=== PATIENT | male | born 1960 | race Caucasian/White ===

== ENCOUNTER 2023-07-14 19:24 | Observation (INO) | payer BC, SELFPAY ==
[2023-07-14 19:28] VITALS: BP 143/89; PULSE 91; RESP 18; TEMP 36.8; O2SAT 98
[2023-07-14 20:08] LABS: Absolute Lymphocyte Count 0.62 X10^3/uL (0.83-4.51); Absolute Neutrophil Count 3.6 X10^3/uL (2.0-7.7); Basophil# 0.03 X10^3/uL; Basophil% 0.6 % (0-1); Eosinophil# 0.01 X10^3/uL; Eosinophils% 0.2 % (0-5); Hematocrit 38.1 % (40-54); Lymphocyte # 0.62 X10^3/ul (0.83-4.51); Mean Corp Hgb Conc 34.1 g/dL (32-36); Mean Corpuscular Hgb 33.1 pg (27.0-32.0); Mean Corpuscular Volume 96.9 fL (80-94); Mean Platelet Vol. 8.7 fl (6.2-12.0); Monocyte# 0.52 X10^3/uL; Monocyte% 10.9 % (0-10); NRBC Flagged by Analyzer 0 % (0-5); Neutrophil # 3.57 X10^3/uL (2.7-7.7); Neutrophil % 74.9 % (47-70); Platelet Count 157 K/mm3 (150-450); RBC Distribution Width CV 13.2 % (11.6-14.6); RBC Distribution Width SD 47.8 fl (35.1-43.9); Red Blood Count 3.93 M/mm3 (4.6-6.2); White Blood Count 4.8 K/mm3 (4.4-11.0)
[2023-07-14 20:18] LABS: Alcohol, Blood (Medical)-Serum < 3.0 mg/dL
[2023-07-14 20:24] LABS: ALB/GLOB Ratio 0.9 RATIO (0.9-2.4); AST(SGOT) 120 U/L (15-37); Alanine Aminotransfer ALT/SGPT 50 U/L (16-61); Albumin, Serum 3.3 g/dL (3.2-5.0); Alkaline Phosphatase 132 U/L (45-117); Anion Gap 7 (5-15); BUN 3 mg/dL (7-18); BUN/Creat Ratio 4.7 RATIO (10-20); Calcium,Total 8.2 mg/dL (8.5-10.1); Chloride 97 mmol/L (98-107); Creatinine, Serum 0.64 mg/dL (0.70-1.30); EST Glomerular Filtration Rate 135 mL/min (>60); Est Glom Filt Rate - Afr Amer 163 mL/min (>60); Globulin 3.7 g/dL (2.2-4.2); Glucose 110 mg/dL (74-106); Sodium Level 134 mmol/L (136-145)
[2023-07-14 21:21] VITALS: BP 143/88; PULSE 89; RESP 18; O2SAT 98
--- NOTE | 2023-07-14 21:28 | PCM.HP.STD ---
HPI - General General Date of Admission: 07/14/23 Date of Service: 07/14/23 Chief Complaint: Acute alcohol withdrawal HPI Narrative DARIAN MOORE, is a 63 M who presented to the emergency department at [facility] on 07/14/2023 for acute alcohol withdrawal. Patient reports his last drink was 2 to 3 days ago. He states he typically drinks 5 to 12 12 ounce beers daily. He has been doing this for at least 37 years and has never gone through detox program. His daughter was visiting earlier today at which time he had a seizure. He has never had a withdrawal seizure previously. He has no history of seizure disorder. His daughter indicated that he got very tremulous especially in his leg and then went unresponsive and had loss of bladder. He was taken to [facility] emergency department for his seizure and his daughter reported he was postictal in the emergency squad but became more clear once he was in the emergency department there. He was instructed to come here for further detox. Patient does not follow with a primary care physician and he last saw a doctor approximately 3 years ago. He takes no chronic medications and denies any other issues. Vital signs on presentation demonstrated temperature of 98.3, heart rate 91, blood pressure 143/89, respiratory rate was 18 oxygen saturations are 98% on room air. His CBC is overall unimpressive. His chemistry panel did reveal mild hypo and treatment with a sodium of 134, hypochloremia with a chloride of 97, potassium was low at 3.0 and glucose was 110. His liver were slightly abnormal with an elevated AST at 120 and normal ALT. Alcohol level was unremarkable. He was given a dose of oral phenobarb in the emergency department and request for admission was made. [facility] Medical History Alcohol abuse Allergy/AdvReac Type Severity Reaction Status Date / Time Penicillins Allergy PT UNSURE Verified 07/14/23 19:28 OF REACTION Family History (Updated 07/14/23 @ 22:[address] Janki Mac DO) Other Alcohol abuse COPD (chronic obstructive pulmonary disease) Cancer Surgical History no surgical history no surgical history Social History (Updated 07/14/23 @ 22:[address] Janki Mac DO) housing: house current occupational status: retired leisure activities: other other: Gardening Smoking Status: Never smoker alcohol intake: current alcohol intake frequency: 3 or more drinks per day details: 5 to 12 12 ounce beers daily substance use type: does not use ROS Constitutional Constitutional: Denies anorexia, change in weight, chills, fatigue, fever(s), malaise, night sweats, weakness or other Eyes Eyes: Denies blurry vision, change in eye color, change in vision, discharge from eye(s), double vision, erythema, eye pain, loss of vision or other ENT HEENT: Denies abnormal hearing, dysphagia, ear pain, epistaxis, headache(s), hearing loss, nasal congestion, nasal discharge, post nasal drip, sinus pressure, sore throat or other Cardiovascular Cardiovascular: Denies chest pain, claudication, dyspnea on exertion, edema, lightheadedness, orthopnea, palpitations, paroxysmal nocturnal dyspnea, rapid heart rate, syncope or other Respiratory/Chest Respiratory/Chest: Denies cough, dyspnea, excessive phlegm production, hemoptysis, productive cough, shortness of breath at rest, shortness of breath with exertion, wheezing or other Gastrointestinal Gastrointestinal: Reports vomiting; Denies abdominal pain, coffee ground emesis, constipation, diarrhea, dyspepsia, hematemesis, hematochezia, loose stools, melena, nausea or other Genitourinary Genitourinary: Denies burning urination, difficulty urinating, dysuria, hematuria, nocturia, urinary frequency, urinary hesitancy, urinary incontinence, urinary urgency or other Musculoskeletal Musculoskeletal: Denies arthralgias, back pain, joint pain, joint stiffness, joint swelling, myalgias, neck pain or other Neurologic Neurologic: Reports seizure-like activity; Denies abnormal gait, abnormal speech, confusion, disequilibrium, dizziness, focal weakness, headache(s), numbness, paresthesias, seizures, syncope, tingling, tremor(s) or other Psychiatric Psychiatric: Denies anxiety, depression, homicidal ideation, suicidal ideation or other Endocrine Endocrinology: Denies change in body appearance, cold intolerance, excessive sweating, heat intolerance, polydipsia, polyuria or other Hematologic/Lymphatic Hematologic/Lymphatic: Denies anemia, easy bleeding, easy bruising, lymphadenopathy or other Allergic/Immunologic Allergic/Immunologic: Denies rhinitis, hives, eczemia, asthma or other Vital Signs Vital Signs Vital Signs: 07/14/23 19:28 07/14/23 21:21 Temperature 98.3 F Temperature Source Temporal Pulse Rate 91 89 Respiratory Rate 18 18 Blood Pressure 143/89 H 143/88 H Blood Pressure Mean 107 106 Pulse Ox 98 98 Oxygen Delivery Method Room Air Room Air Physical Exam Const alert, oriented x3, no apparent distress and average body habitus Constitutional Narrative: Upper middle-aged, white male, sitting up in bed, appears comfortable and nontoxic, family at bedside General Appearance: cooperative HEENT normocephalic and head/scalp atraumatic HEENT Narrative: Dentition is good for age, Mallampati is 3, no thrush, minimal hearing loss Eyes PERRL, EOMs intact bilaterally and conjunctivae normal Eyes Narrative: No scleral icterus Neck no lymphadenopathy and supple Neck Narrative: Trachea midline, no thyroid enlargement Resp normal respiratory effort, no retractions, no use of accessory muscles and clear to auscultation bilaterally Auscultation: Negative for rales, rhonchi or wheezes Cardio regular rhythm, S1 normal heart sound, S2 normal heart sound, no murmurs, no rub, no gallops and no clicks Cardio Narrative: Mildly tachycardic GI normal to inspection, nondistended, normoactive bowel sounds, soft to palpation and non-tender Extremity no clubbing, cyanosis or edema Extremity Narrative: Pedal pulses are 2+ Skin skin turgor normal, no jaundice, no petechiae and no mottling Skin Narrative: Scattered ecchymosis with no significant wounds Neuro oriented x3, CN's II-XII intact bilaterally, moves all extremities and no focal motor deficits Speech: speech normal Psych affect normal Psych Narrative: Pleasant, interacts normally Results Lab / Micro Data Attestation: I reviewed the patient's lab results. 07/14/23 20:00 07/14/23 20:00 Labs: Laboratory Results - last 24 hr 07/14/23 20:00: WBC 4.8, RBC 3.93 L, Hgb 13.0, Hct 38.1 L, MCV 96.9 H, MCH 33.1 H, MCHC 34.1, RDW Std Deviation 47.8 H, RDW Coeff of Alissa 13.2, Plt Count 157, MPV 8.7, Immature Gran % (Auto) 0.400, Neut % (Auto) 74.9 H, Lymph % (Auto) 13.0 L, [place] % (Auto) 10.9 H, Eos % (Auto) 0.2, Baso % (Auto) 0.6, Absolute Neuts (auto) 3.6, Absolute Lymphs (auto) 0.62 L, Nucleated RBC % 0, Sodium 134 L, Potassium 3.0 L, Chloride 97 L, Carbon Dioxide 30.0, Anion Gap 7, BUN 3 L, Creatinine 0.64 L, Est GFR (MDRD) Af Amer 163, Est GFR (MDRD) Non-Af 135, BUN/Creatinine Ratio 4.7 L, Glucose 110 H, Calcium 8.2 L, Total Bilirubin 0.90, AST 120 H, ALT 50, Alkaline Phosphatase 132 H, Total Protein 7.0, Albumin 3.3, Globulin 3.7, Albumin/Globulin Ratio 0.9, Ethyl Alcohol < 3.0 Assessment & Plan Assessment/Plan (1) Alcohol withdrawal: (2) Alcoholic hepatitis: (3) Hypokalemia: (4) Hyponatremia: (5) Hypochloremia: (6) Elevated blood pressure reading: (7) Alcohol withdrawal seizure: PLAN: Plan Acute alcohol withdrawal -Patient has been 2 to 3 days without alcohol -Seizure earlier today witnessed by daughter with loss of bladder control and postictal state following -First time this is ever happened -Patient has never been through alcohol detox program previously -Drinks anywhere from 5-12 beers daily -Has been drinking at least 37 years -Start phenobarbital taper -CIWA with as needed Ativan -Supportive medications -Thiamine and folate -180 consultation Withdrawal seizure -Phenobarb as above -Seizure precautions -No further work-up at this time as this seems to be a withdrawal seizure Hypokalemia -60 mill equivalents p.o. potassium replacement -Check a.m. magnesium and phosphorus level Alcoholic hepatitis -AST with mild elevation 120 -ALT is normal -Should resolve with alcohol cessation -No further work-up required at this time -Patient does not qualify for steroids with overall low Madrey score Elevated blood pressure reading -Patient without history of hypertension but does not follow with a doctor -As needed hydralazine next-continue to monitor -May be elevated due to alcohol withdrawal Hyponatremia/hypochloremia -Likely related to decreased oral intake and chronic alcohol use -Very mild -Repeat BMP in a.m. DVT prophylaxis -Low risk -Early and frequent ambulation CODE STATUS Full code Charges/Coding Visit Charges Inpatient E&M: 73219 Init Hosp L2
[2023-07-14] MEDS: Phenobarbital 32.4 MG Tablet 97.2 MG PO (21:58)
[2023-07-14 22:08] VITALS: BP 143/88; PULSE 89; RESP 18; TEMP 36.6; O2SAT 95
--- NOTE | 2023-07-14 22:10 | EX.ED.DYSGE1 ---
HPI History of Present Illness Chief Complaint: ETOH Intox PFSH PFSH Medical History Alcohol abuse Allergy/AdvReac Type Severity Reaction Status Date / Time Penicillins Allergy PT UNSURE Verified 07/14/23 19:28 OF REACTION Family History (Updated 07/14/23 @ 22:[address] Janki Mac DO) Other Alcohol abuse COPD (chronic obstructive pulmonary disease) Cancer Social History (Updated 07/14/23 @ 22:[address] 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 States they are at an outside hospital prior to arrival when he underwent lab work-up for seizures and alcohol withdrawal. They note they received Ativan, banana bag. There is sent in for admission to [facility] detox program. Patient states he drinks approximately 4-6 beers daily. Last drink was 2 to 3 days ago. Denies history of alcohol withdrawal alcohol drawl seizures REVIEW OF SYSTEMS: Pertinent positives: Seizures, Pertinent negatives: Hallucinations PHYSICAL EXAM: Nursing triage notes reviewed, Vital signs reviewed Constitutional: please see mdm HENT: MMM Eyes: Pupils equal round and reactive to light, Extraocular muscles intact Neck: No stridor, no JVD, full neck ROM Lungs: Clear to auscultation, No wheezing or rales. No increased work of breathing, no conversational dyspnea, no accessory muscle use, no nasal flaring. No respiratory distress noted Heart: Regular rate and rhythm, No murmurs, No rubs and No gallops, 2+ distal pulses (radial, femoral, posterior tibial) in all extremities Abdomen: Soft, there is no tenderness, rigidity, rebound or guarding, no obvious peritoneal signs, no palpable pulsatile abdominal masses, no auscultated abdominal bruit : No CVAT Extremities: No edema Neuro: No focal neurological deficits, cranial nerves II through XII intact, 5/5 strength in all extremities. Intact sensation to light touch in all extremities, 2+ reflexes bilateral patella tendons. Normal gait. No ataxia. Skin: No rash or lesions noted MEDICAL DECISION MAKING: Chief Complaint: Alcohol withdrawal External records reviewed: Per prior ED evaluation patient a Noncon CT scan of the head that was negative, chest x-ray showed no evidence of intrathoracic process. CBC from outside hospital showed no evidence of leukocytosis, there is mild anemia, there is thrombocytopenia as well urinalysis showed no evidence of UTI, CMP with mild hyponatremia, hypokalemia, no BULMARO, there was elevations in the patient's liver enzymes, these were mild, patient acetone level is negative, his Tylenol salicylate level were negative, tox cream was positive for THC, the patient received thiamine, folate, IV fluids, and 4 mg of IV Ativan outside hospital. Factors affecting care: Alcohol abuse Social determinants of health: Alcohol abuse History obtained from others: Patient's family Consults: Internal medicine ALL IMAGES (IF OBTAINED) HAVE BEEN PERSONALLY REVIEWED AND INTERPRETED BY MYSELF. MDM Narrative: The patient was hemodynamically stable, afebrile, nontoxic-appearing. Did not appear tremulous he did not appear anxious he is not hallucinating. Likely secondary him receiving Ativan. I obtain medical clearance for admission to detox. Patient's labs here were unremarkable. He was given phenobarbital to continue his withdrawal treatment he was admitted under medicine in stable condition. The patient and/or family, caregivers express understanding. The patient and/or family, caregivers agrees with the plan. Shared decision making: I will have a discussion with the patient and or visitors regarding risk/benefits of further testing or admission. They will be made aware of of the risk/benefits inherent in this decision they will be given the opportunity to voice understanding. Total critical care time today provided was at least 0 minutes. This excludes separately billable procedures. Critical care time (if documented) is secondary to the patient having high probability of clinically significant/life threatening deterioration in the patient's condition which required my urgent intervention. Lab Data Attestation: I reviewed the patient's lab results. Labs: Laboratory Results - last 24 hr 07/14/23 20:00 WBC 4.8 RBC 3.93 L Hgb 13.0 Hct 38.1 L MCV 96.9 H MCH 33.1 H MCHC 34.1 RDW Std Deviation 47.8 H RDW Coeff of Alissa 13.2 Plt Count 157 MPV 8.7 Immature Gran % (Auto) 0.400 Neut % (Auto) 74.9 H Lymph % (Auto) 13.0 L [place] % (Auto) 10.9 H Eos % (Auto) 0.2 Baso % (Auto) 0.6 Absolute Neuts (auto) 3.6 Absolute Lymphs (auto) 0.62 L Nucleated RBC % 0 Sodium 134 L Potassium 3.0 L Chloride 97 L Carbon Dioxide 30.0 Anion Gap 7 BUN 3 L Creatinine 0.64 L Est GFR (MDRD) Af Amer 163 Est GFR (MDRD) Non-Af 135 BUN/Creatinine Ratio 4.7 L Glucose 110 H Calcium 8.2 L Total Bilirubin 0.90 AST 120 H ALT 50 Alkaline Phosphatase 132 H Total Protein 7.0 Albumin 3.3 Globulin 3.7 Albumin/Globulin Ratio 0.9 Ethyl Alcohol < 3.0 BMPCBC with no leukocytosis, no anemia, no thrombocytopenia Mild hyponatremia, hypokalemia, no BULMARO LFTs with elevations in liver enzymes and alcohol-induced pattern, Serum alcohol negative Discharge Plan Triage Chief Complaint: ETOH Intox ED Provider: Willian Collins Dx/Rx/DC Orders Primary Care Provider: Care Physician,No Primary Disposition Disposition: Acute Care [facility] Discharge Date/Time: 07/14/23 22:09
[2023-07-14 22:18] VITALS: BP 147/80; PULSE 67; RESP 16; TEMP 36.7; O2SAT 99; BMI 20.8
[2023-07-14 22:46] LABS: Amphetamine Urine VISTA NEGATIVE (<1000 ng/mL); Barbiturate Urine VISTA NEGATIVE (< 200 ng/mL); Benzodiazepine Urine VISTA NEGATIVE (< 200 ng/mL); Cocaine Urine VISTA NEGATIVE (< 300 ng/mL); Ecstacy Urine VISTA NEGATIVE (< 500 ng/mL); Methadone Urine VISTA NEGATIVE (< 300 ng/mL); PCP Urine VISTA NEGATIVE (< 25 ng/mL); THC Urine VISTA POSITIVE (< 50 ng/mL); Vista UDS pH Range 7
[2023-07-14] MEDS: Potassium Chloride Oral Tablet 20 MEQ 60 MEQ PO (22:47)
[2023-07-14] MEDS: traZODone 100 MG Tablet PO (22:47)
[2023-07-14] MEDS: hydrOXYzine PAM 25 MG Capsule 50 MG PO (22:47)
[2023-07-15] MEDS: Gabapentin 300 MG Capsule PO (01:58)
[2023-07-15] MEDS: Phenobarbital 32.4 MG Tablet 64.8 MG PO ×6 (01:58→21:45)
[2023-07-15 02:00] VITALS: BP 145/87; PULSE 70; RESP 16; TEMP 37.2; O2SAT 99
[2023-07-15 06:00] VITALS: BP 123/86; PULSE 83; RESP 16; TEMP 36.8; O2SAT 98
[2023-07-15] MEDS: hydrOXYzine PAM 25 MG Capsule 50 MG PO (06:05)
--- NOTE | 2023-07-15 07:29 | PN.HOSP_ITS ---
Reason for Visit Reason for Visit: Diagnoses Hypo-osmolality and hyponatremia (07/14/23) Hypokalemia (07/14/23) Other disorders of electrolyte and fluid balance, not elsewhere classified (07/14/23) Alcohol use, unspecified with withdrawal, unspecified (07/14/23) Alcoholic hepatitis without ascites (07/14/23) Elevated blood-pressure reading, without diagnosis of hypertension (07/14/23) Unspecified convulsions (07/14/23) Subjective Subjective Patient is a 63-year-old gentleman with history of alcohol dependence admitted with acute alcohol withdrawal with with seizures Objective Data Objective Data Vital Signs: Vital Signs Temp Pulse Resp BP Pulse Ox O2 Del Method 98.2 F 83 16 123/86 H 98 Room Air 07/15/23 06:00 07/15/23 06:00 07/15/23 06:00 07/15/23 06:00 07/15/23 06:00 07/15/23 06:00 Oxygen Delivery Method Room Air Weight: 66 kg Body Mass Index (BMI) 20.8 Lab / Micro Data 07/14/23 20:00 07/15/23 06:40 Labs: Laboratory Results - last 24 hr 07/14/23 20:00: WBC 4.8, RBC 3.93 L, Hgb 13.0, Hct 38.1 L, MCV 96.9 H, MCH 33.1 H, MCHC 34.1, RDW Std Deviation 47.8 H, RDW Coeff of Alissa 13.2, Plt Count 157, MPV 8.7, Immature Gran % (Auto) 0.400, Neut % (Auto) 74.9 H, Lymph % (Auto) 13.0 L, [place] % (Auto) 10.9 H, Eos % (Auto) 0.2, Baso % (Auto) 0.6, Absolute Neuts (auto) 3.6, Absolute Lymphs (auto) 0.62 L, Nucleated RBC % 0, Sodium 134 L, Potassium 3.0 L, Chloride 97 L, Carbon Dioxide 30.0, Anion Gap 7, BUN 3 L, Creatinine 0.64 L, Est GFR (MDRD) Af Amer 163, Est GFR (MDRD) Non-Af 135, BUN/Creatinine Ratio 4.7 L, Glucose 110 H, Calcium 8.2 L, Total Bilirubin 0.90, AST 120 H, ALT 50, Alkaline Phosphatase 132 H, Total Protein 7.0, Albumin 3.3, Globulin 3.7, Albumin/Globulin Ratio 0.9, Ethyl Alcohol < 3.0 07/14/23 22:00: Urine Opiates Screen NEGATIVE, Urine Methadone Screen NEGATIVE, Ur Barbiturates Screen NEGATIVE, Ur Phencyclidine Scrn NEGATIVE, Ur Amphetamines Screen NEGATIVE, MDMA (Ecstasy) Screen NEGATIVE, U Benzodiazepines Scrn NEGATIVE, Urine Cocaine Screen NEGATIVE, U Cannabinoids Screen POSITIVE H, Ur Drug Screen Comment Physical Exam Narrative GENERAL: cooperative HEENT: Atraumatic; normocephalic EYES; Anicteric, Normal Conjunctiva NECK; supple, normal thyroid, RESPIRATORY: Diminished to auscultation CARDIOVASCULAR: Regular S1 S2, GI: soft, normoactive bowel sounds, : No Renal angle tenderness; EXTREMITIES: No edema, no clubbing, MUSCULOSKELETAL: no muscle wasting NEURO: Awake; no lateralizing signs. SKIN: No Rash PSYCH; Flat affect Assessment & Plan Assessment/Plan (1) Alcohol withdrawal seizure: (2) Hyponatremia: (3) Hypochloremia: (4) Hypokalemia: (5) Alcohol withdrawal: QUALIFIERS: Complication of substance-induced condition: with delirium Qualified Code(s): F10.931 - Alcohol use, unspecified with withdrawal delirium PLAN: Plan Patient is a 63-year-old gentleman with history of alcohol dependence admitted with acute alcohol withdrawal with with seizures 1. Acute alcohol withdrawal ? Patient has been admitted to regular nursing floor managed with phenobarb taper with adjuvants medications for symptom management 2. Withdrawal seizure ? Patient is on phenobarb taper. Seizure precautions instituted 3. Hypokalemia -Corrected per protocol, repeat BMP ordered for a.m. 4. Hypochloremic hyponatremia ? Secondary to chronic alcohol use, monitoring with daily BMPs 5. Elevated transaminases ? Consistent with alcoholic hepatitis we will monitor 6. Elevated blood pressure on admission ? Patient blood pressure has stabilized 7. DVT prophylaxis ? SC Lovenox Time spent in the patient's overall evaluation,decision-making process, review of diagnostic data, adjustment of management, discussion with other providers, nursing nursing and ancillary staff involved in patient's care documentation, 50 Minutes Charges/Coding Visit Charges Inpatient E&M: [address] [place] [id number]
[2023-07-15] MEDS: Folic Acid 1 MG Tablet PO (07:55)
[2023-07-15] MEDS: Thiamine Hydrochloride 100 MG Tablet PO (07:55)
[2023-07-15 07:58] LABS: Anion Gap 8 (5-15); BUN 3 mg/dL (7-18); BUN/Creat Ratio 6.2 RATIO (10-20); Calcium,Total 8.6 mg/dL (8.5-10.1); Chloride 98 mmol/L (98-107); Creatinine, Serum 0.48 mg/dL (0.70-1.30); EST Glomerular Filtration Rate 185 mL/min (>60); Est Glom Filt Rate - Afr Amer 224 mL/min (>60); Estimated Creatinine Clearance 147.05 ml/min; Glucose 96 mg/dL (74-106); Magnesium 2.3 mg/dL (1.6-2.6); Potassium 2.9 mmol/L (3.5-5.1); Sodium Level 136 mmol/L (136-145)
[2023-07-15 09:08] VITALS: BP 126/76; PULSE 65; RESP 16; TEMP 36.8; O2SAT 100
[2023-07-15] MEDS: Potassium Chloride Oral Tablet 20 MEQ 40 MEQ PO (09:47)
--- NOTE | 2023-07-15 11:39 | ADDICTION ---
This check writer salesperson met with PT to conduct ASAM, MSE, AUDIT, DUDIT assessments and to plan for d/c. PT A+Ox4 and participated actively. All assessments completed and placed in PT's chart. PT doesnt plan to f/u with any outpatient treatment services, however he will discuss it with his family upon d/c. This worker offered resources. He reported if he does follow up anywhere it would be [facility]. PT did not indicate a need for transportation post d/c from [facility].
[2023-07-15 12:15] VITALS: BP 128/87; PULSE 92; RESP 16; TEMP 37.4; O2SAT 98
--- NOTE | 2023-07-15 14:19 | CASEMGMT ---
Social Work This social sciences chair (sw) presented to bedside and introduced self. Sw asked patient if he has Advanced Directives (living will and power of assistant city attorney) in place. Patient states that he is in the process of getting these documents completed with his electrical cad designer in [place]. Sw encouraged patient to have these documents scanned into his chart when completed. Patient expressed understanding. Asad Muñoz, SHOT GRINDER OPERATOR, CULTURE ROOM WORKER
--- NOTE | 2023-07-15 14:22 | NURSING ---
pt asked how long he will be here. i explained that the program is at least 3 days. pt stated that he plans on leaving tomorrow. i told him that if he leaves it will be ama. the program is a voluntary and he is free to leave if he wants to. pt stated he will stay tonight but plans to leave tomorrow. pt stated he has many things to do at home, and is worried what he will be walking into at home. example that his may be with another man. explained that leaving will be his decision.
[2023-07-15 15:12] VITALS: BP 138/83; PULSE 108; RESP 16; TEMP 37.1; O2SAT 98
[2023-07-15] MEDS: Potassium Chloride Oral Tablet 20 MEQ PO (17:37)
[2023-07-15 21:40] VITALS: BP 133/77; PULSE 83; RESP 16; TEMP 37.8; O2SAT 97
[2023-07-16] MEDS: Phenobarbital 32.4 MG Tablet 64.8 MG PO ×3 (02:14→09:22)
[2023-07-16 06:00] VITALS: BP 149/82; PULSE 81; RESP 18; TEMP 36.8; O2SAT 99
--- NOTE | 2023-07-16 07:36 | PCM.PN.HOSP ---
Reason for Visit Reason for Visit: Diagnoses Hypo-osmolality and hyponatremia (07/14/23) Hypokalemia (07/14/23) Other disorders of electrolyte and fluid balance, not elsewhere classified (07/14/23) Alcohol use, unspecified with withdrawal delirium (07/14/23) Alcohol use, unspecified with withdrawal, unspecified (07/14/23) Alcoholic hepatitis without ascites (07/14/23) Elevated blood-pressure reading, without diagnosis of hypertension (07/14/23) Unspecified convulsions (07/14/23) Subjective Subjective Patient seen threatening to leave AMA Objective Data Objective Data Vital Signs: Vital Signs Temp Pulse Resp BP Pulse Ox O2 Del Method 98.2 F 81 18 149/82 H 99 Room Air 07/16/23 06:00 07/16/23 06:00 07/16/23 06:00 07/16/23 06:00 07/16/23 06:00 07/16/23 06:00 Oxygen Delivery Method Room Air Weight: 66 kg Body Mass Index (BMI) 20.8 Intake & Output: Intake and Output for Last 24 Hours 07/14/23 07/15/23 07/16/23 23:59 23:59 23:59 Intake Total 850 / 850 Balance 850 / 850 Lab / Micro Data 07/14/23 20:00 07/15/23 06:40 Labs: Laboratory Results - last 24 hr 07/15/23 06:40: Sodium 136, Potassium 2.9 L, Chloride 98, Carbon Dioxide 30.0, Anion Gap 8, BUN 3 L, Creatinine 0.48 L, Estim Creat Clear Calc 147.05, Est GFR (MDRD) Af Amer 224, Est GFR (MDRD) Non-Af 185, BUN/Creatinine Ratio 6.2 L, Glucose 96, Calcium 8.6, Phosphorus 3.0, Magnesium 2.3 Physical Exam Narrative GENERAL: cooperative HEENT: Atraumatic; normocephalic EYES; Anicteric, Normal Conjunctiva NECK; supple, normal thyroid, RESPIRATORY: Diminished to auscultation CARDIOVASCULAR: Regular S1 S2, GI: soft, normoactive bowel sounds, : No Renal angle tenderness; EXTREMITIES: No edema, no clubbing, MUSCULOSKELETAL: no muscle wasting NEURO: Awake; no lateralizing signs. SKIN: No Rash PSYCH; Flat affect Assessment & Plan Assessment/Plan (1) Alcohol withdrawal seizure: (2) Hyponatremia: (3) Hypochloremia: (4) Hypokalemia: (5) Alcohol withdrawal: QUALIFIERS: Complication of substance-induced condition: with delirium Qualified Code(s): F10.931 - Alcohol use, unspecified with withdrawal delirium PLAN: Plan Patient is a 63-year-old gentleman with history of alcohol dependence admitted with acute alcohol withdrawal with with seizures 1. Acute alcohol withdrawal ? Patient has been admitted to regular nursing floor managed with phenobarb taper with adjuvants medications for symptom management ? 07/16/2023 patient seen threatening to leave AMA 2. Withdrawal seizure ? Patient is on phenobarb taper. Seizure precautions instituted 3. Hypokalemia -Corrected per protocol, repeat BMP ordered for a.m. 4. Hypochloremic hyponatremia ? Secondary to chronic alcohol use, monitoring with daily BMPs 5. Elevated transaminases ? Consistent with alcoholic hepatitis we will monitor 6. Elevated blood pressure on admission ? Patient blood pressure has stabilized 7. DVT prophylaxis ? SC Lovenox Time spent in the patient's overall evaluation,decision-making process, review of diagnostic data, adjustment of management, discussion with other providers, nursing nursing and ancillary staff involved in patient's care documentation, 35 Minutes Charges/Coding Visit Charges Inpatient E&M: 21122 Subs Hosp L2
[2023-07-16 08:20] VITALS: BP 151/107; PULSE 79; RESP 18; TEMP 36.8; O2SAT 98
[2023-07-16] MEDS: Folic Acid 1 MG Tablet PO (08:46)
[2023-07-16] MEDS: Potassium Chloride Oral Tablet 20 MEQ PO (08:47)
[2023-07-16] MEDS: Thiamine Hydrochloride 100 MG Tablet PO (08:47)
--- NOTE | 2023-07-16 11:37 | NURSING ---
pt left AMA, ride coming in 1 hr, pt has eaten lunch and unwilling to wait for ride to arrive, ambulatory
--- NOTE | 2023-07-16 13:38 | PCM.DC.SUM ---
Providers Date of Admission: 07/14/23 Date of Discharge: 07/16/23 Primary Care Physician: No Primary Care Phys Reason For Visit: ETOH DETOX Diagnosis Discharge Diagnosis (1) Alcohol withdrawal seizure: Status: Acute Code(s): F10.939 - Alcohol use, unspecified with withdrawal, unspecified; R56.9 - Unspecified convulsions (2) Hyponatremia: Status: Acute Code(s): E87.1 - Hypo-osmolality and hyponatremia (3) Hypochloremia: Status: Acute Code(s): E87.8 - Other disorders of electrolyte and fluid balance, not elsewhere classified (4) Hypokalemia: Status: Acute Code(s): E87.6 - Hypokalemia (5) Alcohol withdrawal: Status: Acute Code(s): F10.939 - Alcohol use, unspecified with withdrawal, unspecified Qualifiers: Complication of substance-induced condition: with delirium Qualified Code(s): F10.931 - Alcohol use, unspecified with withdrawal delirium Plan Patient is a 63-year-old gentleman with history of alcohol dependence admitted with acute alcohol withdrawal with with seizures 1. Acute alcohol withdrawal ? Patient has been admitted to regular nursing floor managed with phenobarb taper with adjuvants medications for symptom management ? 07/16/2023 patient seen threatening to leave AMA ? Patient left AMA 2. Withdrawal seizure ? Patient is on phenobarb taper. Seizure precautions instituted 3. Hypokalemia -Corrected per protocol, repeat BMP ordered for a.m. 4. Hypochloremic hyponatremia ? Secondary to chronic alcohol use, monitoring with daily BMPs 5. Elevated transaminases ? Consistent with alcoholic hepatitis we will monitor 6. Elevated blood pressure on admission ? Patient blood pressure has stabilized 7. DVT prophylaxis ? SC Lovenox Time spent in the patient's overall evaluation,decision-making process, review of diagnostic data, adjustment of management, discussion with other providers, nursing nursing and ancillary staff involved in patient's care documentation, 35 Minutes Hospital Course Summary of Care Provided Minutes Spent on Discharge: 35 Weight / BMI Weight Weight: 66 kg Body Mass Index (BMI) 20.8 ABG / Lab / Microbiology Data 07/14/23 20:00 07/15/23 06:40 Meaningful Use Info Meaningful Use Diagnoses (Choose all that apply): None applicable Discharge Plan Admission Admit Date/Time: 07/14/23 21:20 Attending Provider: Slim Patel Primary Care Provider: Care Physician,No Primary Consulting Providers: Janki Mac Discharge Orders/Prescriptions Referrals / Follow Up: Care Physician,No Primary [Primary Care Provider] - Disposition Disposition (needs filled in before D/C Order can be placed): Against Medical Advice Charges/Coding Visit Charges Inpatient E&M: 58777 Disch Hosp >30min
== END 2023-07-16 12:08 | disposition left against medical advice (07) | DRG 894 ==
LOC: ED 20:35 → MS3 07-15 07:09
PROVIDERS: Admitting Provider Internal Medicine; Emergency Provider Emergency Medicine; Visit Provider Internal Medicine
DX: F10.239 Alcohol dependence with withdrawal, unspecified (principal); F10.288 Alcohol dependence with other alcohol-induced disorder; G40.89 Other seizures; E87.1 Hypo-osmolality and hyponatremia; K70.10 Alcoholic hepatitis without ascites; E87.8 Other disorders of electrolyte and fluid balance, not elsewhere classified; E87.6 Hypokalemia; R03.0 Elevated blood-pressure reading, without diagnosis of hypertension
CPT/HCPCS: 36415; 80048; 80053; 80307; 80320; 83735; 84100; 85025; 94668; 99221; 99283; A4216; G0378; G0480